=== PATIENT | male | born 1990 | race Hispanic/Latino ===

== ENCOUNTER 2021-09-25 10:08 | Emergency (ER) | payer OTHER ==
[~2021-09-25] VITALS: Ht 165.1 cm; Wt 104.3 kg
[2021-09-25 10:28] VITALS: BP 116/69
[2021-09-25] MEDS ORDERED: NAPROXEN 500 MG TABLET PO SCH (10:30)
[2021-09-25] MEDS ORDERED: NAPROXEN 250 MG TAB ONE (10:32)
[2021-09-25] MEDS ORDERED: NAPR-1192 PO (11:09)
== END 2021-09-25 11:19 | disposition home or self-care (01) ==
LOC: EDH 10:08
DX: S93.401A Sprain of unspecified ligament of right ankle, initial encounter (principal); Z79.1 Long term (current) use of non-steroidal anti-inflammatories (NSAID); W18.39XA Other fall on same level, initial encounter; Y93.89 Activity, other specified; Y92.89 Other specified places as the place of occurrence of the external cause; Y99.8 Other external cause status
CPT/HCPCS: 73600

== ENCOUNTER 2023-01-15 11:24 | Emergency (ER) | payer BC, OTHER ==
[~2023-01-15] VITALS: Ht 165.1 cm; Wt 108.0 kg
[~2023-01-15 11:24] MED LIST: NAPR-1192 PO
[2023-01-15] MEDS ORDERED: NAPR-1196 PO (11:51)
[2023-01-15] MEDS ORDERED: CEPH500B PO (11:51)
[2023-01-15] MEDS ORDERED: CEPHALEXIN 500 MG CAPSULE PO ONE (12:00)
[2023-01-15] MEDS ORDERED: HYDROCODONE/ACETAMINOPHEN 5/325 MG TAB PO ONE (12:00)
[2023-01-15] MEDS ORDERED: KETOROLAC 30MG VIAL (30MG/ML) IM ONE (12:00)
[2023-01-15 12:18] VITALS: BP 114/68; PULSE 66; RESP 20; O2SAT 98
== END 2023-01-15 13:10 | disposition home or self-care (01) ==
LOC: EDH 11:24
DX: L60.0 Ingrowing nail (principal); E11.9 Type 2 diabetes mellitus without complications
CPT/HCPCS: 99284; 96372; J1885

== ENCOUNTER 2024-03-04 19:48 | Inpatient (IN) | payer SELFPAY ==
[~2024-03-04] VITALS: Ht 165.1 cm; Wt 107.5 kg
[~2024-03-04 19:48] MED LIST changes: +CEPH500B PO; +NAPR-1196 PO
[2024-03-04] MEDS: ketOROlac 15MG/ML VIAL (15MG/ML) IV ONE (20:53)
[2024-03-04] MEDS: acetaMINOPHEN 500 MG TABLET PO ONE (20:53)
[2024-03-04 20:57] LABS: BASOPHILS # (AUTO) 0.03 K/uL (0.00-0.20); BASOPHILS % (AUTO) 0.3 % (0.0-5.0); EOSINOPHILS # (AUTO) 0.21 K/uL (0.00-0.70); EOSINOPHILS % (AUTO) 1.9 % (0.0-8.0); HEMATOCRIT 49.4 % (42-54); IMMATURE GRANULOCYTE ABSOLUTE 0.04 K/uL (0-1); LYMPHOCYTES # (AUTO) 3.6 K/uL (1.0-4.8); LYMPHOCYTES % (AUTO) 31.4 % (21.0-51.0); MEAN CORPUSCULAR HEMOGLOBIN 29.4 pg (27.0-33.0); MONOCYTES # (AUTO) 0.8 K/uL (0.1-1.0); MONOCYTES % (AUTO) 6.8 % (3.0-13.0); NEUTROPHILS # (AUTO) 6.7 K/uL (1.8-7.7); NEUTROPHILS % (AUTO) 59.2 % (40.0-77.0); PLATELET COUNT (AUTO) 224 K/uL (130-400); RED BLOOD CELL COUNT(AUTO) 5.88 MIL/uL (4.50-6.20); RED CELL DISTRIBUTION WIDTH 12.4 % (11.0-15.5); WHITE BLOOD COUNT (AUTO) 11.4 K/uL (4.8-10.8)
[2024-03-04 21:17] LABS: CREATININE 1.1 mg/dL (0.5-1.3)
[2024-03-04] MEDS: 0.9%NACL 1000ML 1,000 ML IV ONE ×2 (21:22→22:55)
[2024-03-04] MEDS: cefTRIAXone 1G VIAL IVPB ONE (21:32)
[2024-03-04] MEDS: LIDOCAINE HCL-MPF 2% 5ML VIAL IM SCH (21:33)
[2024-03-04 21:54] VITALS: TEMP 99.9
[2024-03-04] MEDS: INSULIN humuLIN R 100 UNIT/ML 3ML IV ONE (22:47)
[2024-03-05] VITALS (8 sets, daily range): BP systolic 108–123; BP diastolic 68–79; PULSE 64–80; RESP 16–19; TEMP 98–98.9; O2SAT 96–98
[2024-03-05] MEDS ORDERED: METF-444 PO (01:21)
[2024-03-05] MEDS ORDERED: GLUCAGON 1MG KIT 1 MG ML IM PRN (02:00)
[2024-03-05] MEDS ORDERED: DEXTROSE 50%-WATER 50 ML DISP.SYRIN IV PRN (02:00)
[2024-03-05] MEDS ORDERED: acetaMINOPHEN 325 MG TAB PO PRN ×2 (02:00)
[2024-03-05] MEDS ORDERED: ONDANSETRON 4MG INJ IV PRN (02:00)
[2024-03-05] MEDS ORDERED: POTASSIUM CHLORIDE 20MEQ/100ML 100 ML IV PRN (02:00)
[2024-03-05] MEDS: 0.9%NACL 1000ML 1,000 ML IV SCH (02:11)
[2024-03-05] MEDS: CLINDAMYCIN IVPB 600MG/50ML 50 ML IV SCH (02:11)
[2024-03-05] MEDS: ketOROlac 15MG/ML VIAL (15MG/ML) IV PRN (04:54)
[2024-03-05 05:54] LABS: BASOPHILS # (AUTO) 0.05 K/uL (0.00-0.20); BASOPHILS % (AUTO) 0.5 % (0.0-5.0); EOSINOPHILS # (AUTO) 0.28 K/uL (0.00-0.70); EOSINOPHILS % (AUTO) 2.8 % (0.0-8.0); HEMATOCRIT 44.1 % (42-54); IMMATURE GRANULOCYTE ABSOLUTE 0.02 K/uL (0-1); LYMPHOCYTES # (AUTO) 3.6 K/uL (1.0-4.8); LYMPHOCYTES % (AUTO) 35.7 % (21.0-51.0); MEAN CORPUSCULAR HEMOGLOBIN 29.3 pg (27.0-33.0); MEAN CORPUSCULAR HGB CONC 34.5 g/dL (32.0-36.0); MEAN CORPUSCULAR VOLUME 85.1 fL (79-99); MONOCYTES # (AUTO) 0.8 K/uL (0.1-1.0); MONOCYTES % (AUTO) 7.8 % (3.0-13.0); NEUTROPHILS # (AUTO) 5.3 K/uL (1.8-7.7); PLATELET COUNT (AUTO) 202 K/uL (130-400); RED BLOOD CELL COUNT(AUTO) 5.18 MIL/uL (4.50-6.20); RED CELL DISTRIBUTION WIDTH 12.5 % (11.0-15.5)
[2024-03-05 06:07] LABS: INR 1.02 (0.85-1.15)
[2024-03-05 06:09] LABS: PARTIAL THROMBOPLASTIN TIME 28.5 SEC (26.3-35.5)
[2024-03-05 06:12] LABS: ALBUMIN 2.8 g/dL (3.5-5.0); BILIRUBIN,TOTAL 0.6 mg/dL (0.2-1.0); CREATININE 0.9 mg/dL (0.5-1.3); MAGNESIUM 1.9 mg/dL (1.80-2.40); POTASSIUM 3.7 mmol/L (3.5-5.1); TOTAL PROTEIN, SERUM 6.7 g/dL (6.0-8.3)
[2024-03-05 06:14] LABS: HEMOGLOBIN A1C 11.3 % (4.0-6.0)
[2024-03-05] MEDS: INSULIN humuLIN R 100 UNIT/ML 3ML SQ SCH (06:39)
[2024-03-05 07:19] LABS: ERYTHROCYTE SEDIMENTATION RATE 18 MM/HR (0-15)
[2024-03-05] MEDS: FAMOTIDINE 20MG VIAL IV SCH (09:54)
[2024-03-05] MEDS: MAGNESIUM 2GM PREMIX 50ML 50 ML IV PRN (09:54)
[2024-03-05] MEDS: KCL 20 MEQ ERTAB PO ONE (10:07)
[2024-03-06] VITALS (8 sets, daily range): BP systolic 104–124; BP diastolic 67–76; PULSE 62–84; RESP 16–20; TEMP 97.7–98.7; O2SAT 97–98
[2024-03-06 07:01] LABS: BASOPHILS # (AUTO) 0.02 K/uL (0.00-0.20); BASOPHILS % (AUTO) 0.2 % (0.0-5.0); EOSINOPHILS % (AUTO) 3.2 % (0.0-8.0); HEMATOCRIT 44.3 % (42-54); IMMATURE GRANULOCYTE ABSOLUTE 0.04 K/uL (0-1); LYMPHOCYTES # (AUTO) 3.8 K/uL (1.0-4.8); LYMPHOCYTES % (AUTO) 40.2 % (21.0-51.0); MEAN CORPUSCULAR HGB CONC 34.3 g/dL (32.0-36.0); MEAN CORPUSCULAR VOLUME 84.5 fL (79-99); MONOCYTES # (AUTO) 0.6 K/uL (0.1-1.0); MONOCYTES % (AUTO) 6.2 % (3.0-13.0); NEUTROPHILS # (AUTO) 4.6 K/uL (1.8-7.7); NEUTROPHILS % (AUTO) 49.8 % (40.0-77.0); PLATELET COUNT (AUTO) 211 K/uL (130-400); RED BLOOD CELL COUNT(AUTO) 5.24 MIL/uL (4.50-6.20); RED CELL DISTRIBUTION WIDTH 12.4 % (11.0-15.5); WHITE BLOOD COUNT (AUTO) 9.3 K/uL (4.8-10.8)
[2024-03-06 07:19] LABS: ALBUMIN 2.9 g/dL (3.5-5.0); BILIRUBIN,TOTAL 0.7 mg/dL (0.2-1.0); CREATININE 1.1 mg/dL (0.5-1.3); POTASSIUM 3.7 mmol/L (3.5-5.1); TOTAL PROTEIN, SERUM 6.9 g/dL (6.0-8.3)
[2024-03-06] MEDS: LIDOCAINE HCL-MPF 1% 2ML VIAL ONE ×2 (17:45)
[2024-03-06] MEDS: INSULIN GLARgine 100 UNITS/ML 10 ML VIAL SQ SCH (21:12)
[2024-03-07] VITALS (8 sets, daily range): BP systolic 104–120; BP diastolic 61–78; PULSE 62–74; RESP 15–20; TEMP 97.5–98.6; O2SAT 97
[2024-03-07 06:37] LABS: CREATININE 1.8 mg/dL (0.5-1.3); THYROID STIMULATING HORMONE 0.96 uIU/mL (0.36-3.74)
[2024-03-07 06:43] LABS: BASOPHILS # (AUTO) 0.02 K/uL (0.00-0.20); BASOPHILS % (AUTO) 0.2 % (0.0-5.0); EOSINOPHILS # (AUTO) 0.21 K/uL (0.00-0.70); EOSINOPHILS % (AUTO) 2.5 % (0.0-8.0); HEMATOCRIT 43.4 % (42-54); IMMATURE GRANULOCYTE ABSOLUTE 0.02 K/uL (0-1); LYMPHOCYTES # (AUTO) 3.5 K/uL (1.0-4.8); LYMPHOCYTES % (AUTO) 41.8 % (21.0-51.0); MEAN CORPUSCULAR HEMOGLOBIN 28.6 pg (27.0-33.0); MEAN CORPUSCULAR HGB CONC 34.1 g/dL (32.0-36.0); MEAN CORPUSCULAR VOLUME 83.9 fL (79-99); MONOCYTES # (AUTO) 0.6 K/uL (0.1-1.0); MONOCYTES % (AUTO) 7.7 % (3.0-13.0); NEUTROPHILS # (AUTO) 3.9 K/uL (1.8-7.7); NEUTROPHILS % (AUTO) 47.6 % (40.0-77.0); PLATELET COUNT (AUTO) 211 K/uL (130-400); RED BLOOD CELL COUNT(AUTO) 5.17 MIL/uL (4.50-6.20); RED CELL DISTRIBUTION WIDTH 12.3 % (11.0-15.5); WHITE BLOOD COUNT (AUTO) 8.3 K/uL (4.8-10.8)
[2024-03-08] VITALS: BP 140/77; PULSE 74; RESP 18; TEMP 98.2
[2024-03-08 04:00] VITALS: BP 121/74; PULSE 54; RESP 16; TEMP 97.6
[2024-03-08 08:00] VITALS: BP 127/81; PULSE 64; RESP 18; TEMP 97.7; O2SAT 96
[2024-03-08 12:00] VITALS: BP 124/82; PULSE 71; RESP 18; TEMP 98.8
[2024-03-08] MEDS ORDERED: CLIN-141 PO (14:36)
== END 2024-03-08 16:30 | disposition home or self-care (01) | DRG 603 ==
LOC: EDH 19:48 → EDHIP 19:49 → UNDOADMIN 03-05 01:35 → EDHIP 03-05 01:35 → 3DH 03-05 03:57
PROVIDERS: ADMIT Hospitalist; ATTEND Hospitalist
PROC: 0J9M0ZZ Drainage of Left Upper Leg Subcutaneous Tissue and Fascia, Open Approach (ICD-10-PCS; principal; 2024-03-06)
DX: L02.416 Cutaneous abscess of left lower limb (principal); L02.214 Cutaneous abscess of groin; E87.20 Acidosis, unspecified; E11.65 Type 2 diabetes mellitus with hyperglycemia; E78.5 Hyperlipidemia, unspecified; F17.210 Nicotine dependence, cigarettes, uncomplicated; D72.829 Elevated white blood cell count, unspecified; Z79.4 Long term (current) use of insulin; Z79.899 Other long term (current) drug therapy
CPT/HCPCS: 36415; 76882; 80048; 80053; 80061; 82948; 83036; 83605; 83735; 84145; 84443; 85025; 85610; 85651; 85730; 87070; 87076; 96365; 96375; G0378; J0696; J1815; J1885; J3475; J3490; J7030